=== PATIENT | male | born 1975 | race Caucasian/White ===

== ENCOUNTER 2018-06-18 09:26 | Inpatient (IN) ==
[2018-06-18] MEDS ORDERED: ZOFRAN IV ONE ×2 (09:42→10:59)
[2018-06-18] MEDS ORDERED: NS 1,000 ML IV ONE ×4 (09:42→14:21)
[2018-06-18 10:27] LABS: BASO# 0.02 X1000 (0.0-0.2); BASO% 0.1 % (0.0-0.8); EOS# 0.11 X1000 (0.0-0.7); EOS% 0.5 % (0.0-10.0); HEMATOCRIT 55.4 % (42.0-52.0); HEMOGLOBIN 19.4 g/dL (14.0-18.0); IMM GRAN# 0.09 X1000 (0.0-0.04); IMM GRAN% 0.4 % (0.0-0.5); LYMPH# 2.94 X1000 (1.2-3.4); LYMPH% 12.3 % (20.5-51.1); MCH 27.8 PG (27-31); MCV 79.3 FL (81-99); MONO# 0.78 X1000 (0.11-0.59); MONO% 3.3 % (1.7-9.3); MPV 10.4 FL (7.4-10.4); NEUT# 20.05 X1000 (1.4-6.5); NEUT% 83.4 % (42.2-75.2); PLT 352 X1000 (130-400); RBC 6.99 XMIL (4.7-6.1); RDW 14.5 % (11.5-14.5); WBC 23.99 X1000 (4.8-10.8)
[2018-06-18 10:37] LABS: INFLUENZA A NEGATIVE (NEGATIVE); INFLUENZA B NEGATIVE (NEGATIVE)
[2018-06-18 10:39] LABS: AGAP 16; ALBUMIN 3.8 g/dL (3.5-5.0); ALKALINE PHOSPHATASE 116 U/L (32-122); BUN 15 mg/dL (8-22); CALCIUM 8.7 mg/dL (8.8-10.2); CHLORIDE 100 mmol/L (98-107); COSMO 284; CREATININE 1.1 mg/dL (0.7-1.2); ESTIMATED GFR > 60; GLUCOSE 331 mg/dL (70-104); GOT 23 U/L (10-34); GPT 38 U/L (10-44); LIPASE 19 U/L (13-60); POTASSIUM 4.6 mmol/L (3.5-5.1); SODIUM 135 mmol/L (136-145); TCO2 19 mmol/L (25-35); TOTAL PROTEIN 7.3 g/dL (6.3-8.3)
[2018-06-18] MEDS ORDERED: MORPHINE IV ONE (10:59)
[2018-06-18 11:07] LABS: LYMPHS 14 % (21-51); MONO 2 % (1-9); SEGS 84 % (42-75)
--- NOTE | 2018-06-18 11:26 | Diag Imaging Result Doc PS360 ---
EXAM: CHEST-2 VIEWS 06/18/2018 HISTORY: cough with leukocystosis TECHNIQUE: PA and lateral chest COMMENT: The inspiration is slightly better than on 06/09/2014. Otherwise there has been no significant change in the appearance of the chest. The heart size and pulmonary vascularity are within normal limits. There are no pulmonary opacities. IMPRESSION: No acute disease. Electronically signed by Fer Packer 06/18/2018 11:24 AM
--- NOTE | 2018-06-18 11:35 | Diag Imaging Result Doc PS360 ---
EXAM: CT ABD/PELVIS W/IV CONT ONLY 06/18/2018 HISTORY: abd pain with vomiting and laukocystosis TECHNIQUE: This exam was performed using automated exposure control, adjustment of mA or kV according to patient size, and/or use of iterative reconstruction technique. COMMENT: The current examination is compared with the previous study of 02/17/2018. The visualized portion of the chest is unremarkable. The liver is hypodense suggesting fatty change. The spleen is not enlarged. The adrenal glands are within normal limits. The pancreas is unremarkable. There has been cholecystectomy. There is no evidence of bowel obstruction, abdominal aortic aneurysm or significant adenopathy. The stomach is not distended. The portions of the colon which contain gas demonstrated no mucosal thickening. The small bowel is not distended and the presence or absence of mucosal thickening cannot be established. The possibility of mild enteritis cannot be excluded. Pelvis: The appendix is normal in appearance. There is a small amount of free fluid in the pelvis. The urinary bladder is unremarkable. There is no evidence of significant adenopathy. The regional skeleton is intact. IMPRESSION: The possibility of enteritis cannot be excluded. Free fluid. Otherwise no definite evidence of acute disease. Electronically signed by Fer Packer 06/18/2018 11:32 AM
[2018-06-18] MEDS ORDERED: ZOSYN 3.375 GM in NS 50 ML IV ONE (11:52)
[2018-06-18] MEDS ORDERED: TORADOL IV ONE (11:55)
--- NOTE | 2018-06-18 12:01 | PROVIDER DOCUMENTATION ---
This chart was entered by Gillian Verma Scribe, acting as scribe for Donald Pandya CRNP. HPI-General Adult - General Chief Complaint: N/V/D Stated Complaint: ALLERGIC REACTION Time Seen by Provider: 06/18/18 09:50 Source: patient Allergies/Adverse Reactions: Patient Allergies Allergy/AdvReac Type Severity Reaction Status Date / Time No Known Allergies Allergy Verified 07/19/17 23:35 Home Medications: Home Medication List Medication Instructions Recorded Confirmed Last Taken Type Sitagliptin Phosphate [Januvia] 100 mg PO DAILY 02/23/15 08/15/15 08/15/15 07: 30 History Atenolol [Tenormin] 50 mg PO BID 08/15/15 08/15/15 08/15/15 08:30 History Ketorolac [Toradol] 10 mg PO Q6H PRN PRN #20 tablet 08/15/15 Unknown Rx Ondansetron HCl [Zofran] 4 mg PO Q4H PRN PRN #20 tablet 08/15/15 Unknown Rx Ciprofloxacin HCl [Cipro] 500 mg PO BID #20 tablet 04/15/16 Unknown Rx Hydrocodone/APAP 10 mg/325 mg 1 each PO Q6H PRN PRN #20 tablet 04/15/16 Unknown Rx [[place]-10] Ondansetron HCl [Zofran] 4 mg PO Q6HR PRN #20 tablet 04/15/16 Unknown Rx - History of Present Illness -Gen Adult Nature of Presenting Problems: 42 y/o male presents to ED with N/V/D and abdominal pain onset 2 hours ago. Pt states he thinks he is having an allergic reaction because his tongue is swelling, diaphoresis, and "welps" on abdomen onset just prior to arrival. Pt reports he took Benadryl before arrival in ED. Pt states he has not had anything new to eat or on his skin. Pt also states he has had cough and nasal drainage for 1 week. Pt is alert and oriented. Location of Pain/Injury: reports: abdomen Pain Radiation: reports: no radiation Quality of Pain: reports: aching Severity: reports: mild Onset/Duration: reports: 1-3 hours ago Timing: reports: still present Context/Activities at Onset: reports: none Modifying Factors: improves with: nothing Associated Symptoms: reports: cough, diaphoresis, diarrhea, sinus congestion/ drainage, nausea, vomiting, other (abdominal pain, tongue swelling, "welps" on abdomen) Similar Symptoms Previously?: No Recently seen or treated by another doctor?: No Review of Systems - Adult - REVIEW OF SYSTEMS - ADULT Constitutional: denies: chills, fever Eyes: reports: no symptoms reported Ears, Nose, Mouth & Throat: reports: sinus problem, other (tongue swelling) Cardiovascular: denies: chest pain, palpitations Respiratory: reports: cough. denies: shortness of breath Gastrointestinal: reports: abdominal pain, diarrhea, nausea, vomiting Genitourinary: reports: no symptoms reported Musculoskeletal: denies: back pain, joint pain Integumentary: reports: other (diaphoresis; "welps" on abdomen). denies: itching Neurological: denies: dizziness/vertigo, seizure Psychiatric: reports: no symptoms reported Endocrine: reports: no symptoms reported Hematologic/Lymphatic: reports: no symptoms reported Allergic/Immunologic: reports: no symptoms reported All Other Systems: Reviewed and Negative Past History - Adult - PAST MEDICAL HISTORY-ADULT Review of Records: reports: Old Records Reviewed, Nursing Assessment Review, Medications Reviewed Major Childhood Illnesses: reports: denies history Cardiovascular: reports: HTN Respiratory: reports: denies history Gastrointestinal: reports: denies history Obstetrical/Gynecological: reports: denies history Genitourinary: reports: denies history Musculoskeletal: reports: chronic pain, neck/back injury Neurological: reports: denies history Endocrine/Immune: reports: Diabetes Diabetes Type: Type 2 Other Conditions: reports: denies history - PRIOR SURGERIES/PROCEDURES Surgical/Procedure History: reports: cholecystectomy, other (spincterectomy/ fistula; abscess) - IMMUNIZATION STATUS Childhood Immunizations: See Nurse Assessment Flu Vaccine: See Nurse Assessment - FAMILY HISTORY Family History: reviewed, not pertinent - SOCIAL HISTORY Smoking: quit greater than 1 year Substance Use: none/never Alcohol Use Frequency: never Living Situation: family Physical Exam-General - PHYSICAL EXAM-ADULT Initial Vital Signs Reviewed: Yes - CONSTITUTIONAL General Appearance: appears well, alert, no apparent distress - EYES Eyes: PERRL/EOMI, pink conjunctivae - HEAD, EARS, NOSE, MOUTH & THROAT HENMT: normocephalic/atraumatic, moist mucous membranes, normal ENT inspection - NECK Neck: non-tender, full range of motion - RESPIRATORY Respiratory: chest non-tender, lungs clear, normal breath sounds - CARDIOVASCULAR Cardiovascular: normal peripheral pulses, regular rate, rhythm - GASTROINTESTINAL (ABDOMEN) Abdominal Exam: normal bowel sounds, non tender, soft - MUSCULOSKELETAL Back Exam: normal inspection, no CVA tenderness Extremity: normal range of motion, non-tender, normal gait - SKIN Integumentary: normal color, warm/dry, other (mild skin irritation over abdomen) - NEUROLOGIC Neurologic: grossly normal - PSYCHIATRIC Psych/Mental Status: normal mood/affect, normal thought content, normal thought process Progress - PLAN OF CARE/RESULTS Progress/Plan/Lab Results: Vital Signs - 8 hr 06/18/18 09:29 Pulse Rate 104 H Respiratory Rate 20 Blood Pressure 133/106 O2 Sat by Pulse Oximetry 97 Orders Category Date Time Status IV Insertion ORDERED Care 06/18/18 09:42 Active AMYLASE [CHEM] Stat Lab 06/18/18 09:42 Ordered CBC WITH DIFF [HEME] Stat Lab 06/18/18 09:42 Ordered COMPREHENSIVE METABOLIC PANEL [CHEM] Stat Lab 06/18/18 09:42 Uncollected INFLUENZA SCREEN A/B Stat Lab 06/18/18 09:42 Uncollected LIPASE [CHEM] Stat Lab 06/18/18 09:42 Uncollected UA NIMS W/REFLEX CULT PL [URINALYSIS] Stat Lab 06/18/18 09:42 Uncollected 0.9% Sodium Chloride Inj [Ns] 1,000 ml Med 06/18/18 09:42 Active IV 999 mls/hr Ondansetron [Zofran] Med 06/18/18 09:42 Discontinued 4 mg IV NOW ONE The pt will be admitted under Dr. Ramsey's Care. The pt and his family understands, verbalize, and agrees with the plan of care given today. Result Diagrams: 06/18/18 10:11 06/18/18 10:11 - XRAY 1 XRAY: Bilateral XRAY Study: Chest Impression: Normal (COMMENT: The inspiration is slightly better than on 2013. Otherwise there has been no significant change in the appearance of the chest. The heart size and pulmonary vascularity are within normal limits. There are no pulmonary opacities. IMPRESSION: No acute disease.) Comparison with other Films: changes noted - CT/MRI 1 CT Study: Abdomen, Pelvis Impression: Abnormal (COMMENT: The current examination is compared with the previous study of 02/17/2018. The visualized portion of the chest is unremarkable. The liver is hypodense suggesting fatty change. The spleen is not enlarged. The adrenal glands are within normal limits. The pancreas is unremarkable. There has been cholecystectomy. There is no evidence of bowel obstruction, abdominal aortic aneurysm or significant adenopathy. The stomach is not distended. The portions of the colon which contain gas demonstrated no mucosal thickening. The small bowel is not distended and the presence or absence of mucosal thickening cannot be established. The possibility of mild enteritis cannot be excluded. Pelvis: The appendix is normal in appearance. There is a small amount of free fluid in the pelvis. The urinary bladder is unremarkable. There is no evidence of significant adenopathy. The regional skeleton is intact. IMPRESSION: The possibility of enteritis cannot be excluded. Free fluid. Otherwise no definite evidence of acute disease.) Comparison with other Films: changes noted - CONSULTS/PCP/HOSPITALIST Notification #1 *Consult/PCP/Hospitalist*: [place] Time Discussed: 12:00 Consult Disposition: Admit Departure - Departure Date of Disposition Decision: 06/18/18 Time of Disposition Decision: 12:00 DIAGNOSIS: Enteritis, Dehydration Sepsis Qualifiers: Sepsis type: sepsis due to unspecified organism Qualified Code(s): A41.9 - Sepsis, unspecified organism Disposition: HOME 01 Certified Medical Emergency: Emergent Condition: Stable Referrals and Follow-Ups: None,PCP [Primary Care Provider] - - Critical Care Note This patient required my direct & personal management of CC.: No Attestation - Physician/ EDUARDO Attestation Patient care was provided by Advanced Practice Provider:: Yes Advanced Practice Provider:: Donald Pandya Advanced Practice Provider documentation review:: The Mid-level provider documentation, treatment plan and medical decision making was reviewed by the physician who agrees with all treatment and medical decision making by the P. The physician spent face to face time with patient:: No Advanced Practice Provider documentation review:: Supervising physician onsite and consulted in the evaluation and care of this patient. The physician did not have a face to face encounter with the patient. This chart was documented by the indicated scribe, (Gillian Verma Scribe) and accurately reflects the services I performed and decisions made by me, Donald Pandya CRNP, as attested by the provider's signature.
[2018-06-18 12:04] LABS: BILIRUBIN URINE NEGATIVE (NEGATIVE); BLOOD URINE NEGATIVE (NEGATIVE); CLARITY CLEAR (CLEAR); COLOR YELLOW; KETONE URINE NEGATIVE (NEGATIVE); LEUKOCYTES URINE TRACE (NEGATIVE); NITRITE URINE NEGATIVE (NEGATIVE); PH URINE 6.5; PROTEIN URINE 1+(30 mg/dL) mg/dL (NEGATIVE); UROBILINOGEN URINE NORMAL
[2018-06-18 12:12] LABS: URINE WBC <10 /HPF (<10)
[2018-06-18 12:13] LABS: URINE EPITHELIAL CELLS <10 /HPF (<10); URINE SOURCE CLEAN CATCH
--- NOTE | 2018-06-18 14:43 | HISTORY AND PHYSICAL ---
PRIMARY CARE PHYSICIAN: [facility]. CHIEF COMPLAINT: Nausea, vomiting, diarrhea with abdominal pain that began 2 hours prior to arrival. HISTORY OF PRESENTING ILLNESS: This is a 42-year-old male who presents to [facility] ER with complaints of nausea, vomiting, diarrhea, and abdominal pain that began approximately 2 hours prior to arrival. States that he ate buttery popcorn last night, and when he woke up this morning, he was burping the popcorn, and began vomiting, and then he began to feel his tongue swell, got diaphoretic, and noticed some welts on his abdomen, so he took a Benadryl at home before arriving to the emergency department. The tongue swelling had subsided, and the welts on his abdomen had subsided by the time he came to the emergency room. His workup did show a pulse of 104, a white blood cell count of 23.99, with a hemoglobin of 19.4, hematocrit 55.4. His plasma lactate was 2.5. Influenza A and B were both negative. Chest x-ray showed no acute disease. We did a CT of the abdomen and pelvis that showed the possibility of enteritis could not be excluded, so he is being admitted for further evaluation and treatment. PAST MEDICAL HISTORY: Hypertension and diabetes type 2. PAST SURGICAL HISTORY: Cholecystectomy and sphincterectomy/fistula abscess repair. FAMILY HISTORY: Reviewed and noncontributory. SOCIAL HISTORY: He currently lives with family. Denies any tobacco, alcohol, or illicit drug use. ALLERGIES: He has no known drug allergies. HOME MEDICATIONS: A current list of his home medications will need to be obtained and restarted as appropriate. Will place an order for nursing to update and confirm home medications. IMAGING AND LABORATORY DATA: Laboratory data showed a white blood cell count of 23.99, hemoglobin 19.4, hematocrit 55.4, platelets 352,000. Sodium of 135, potassium 4.6, chloride 100, CO2 of 19, BUN of 15, creatinine 1.1, glucose 331. Amylase 35, lipase 19. Plasma lactate of 2.5. Urinalysis was negative. Influenza A and B were both negative. Chest x-ray showed no acute disease. CT of the abdomen and pelvis showed the possibility of enteritis could not be excluded, free fluid, and otherwise no definite evidence of acute disease. REVIEW OF SYSTEMS: He denied any fever, chills, blurred vision, dizziness. He did have some swelling of his tongue that had subsided by the time he arrived to the emergency room. He denied any chest pain, coughing, shortness of breath. He was positive for abdominal pain that was generalized, nausea, vomiting, and diarrhea. Had some welts to his abdomen prior to arrival that had subsided after he took Benadryl, and denies any burning or hurting with urination. PHYSICAL EXAMINATION: VITAL SIGNS: His pulse was 104, respirations 20, blood pressure 133/106, saturating 97% on room air. GENERAL: This is a 42-year-old male who is sitting up in the bed and answers questions appropriately. HEENT: Normocephalic, atraumatic. Normal ENT inspection. Oropharynx and nares are clear. Eyes: Pupils are equal, round, and reactive to light and accommodation. Extraocular movements are intact. NECK: Normal inspection. Normal range of motion. LUNGS: Clear to auscultation bilaterally with equal lung expansion and chest wall movement. HEART: Regular rate and rhythm. No murmurs, rubs, or gallops. ABDOMEN: Soft, nontender, nondistended. Bowel sounds are present x4 quadrants. MUSCULOSKELETAL: He has 5/5 strength x4 extremities. NEUROLOGICAL: The cranial nerves II through XII appear grossly intact. ASSESSMENT: 1. Sepsis. 2. Enteritis. 3. Leukocytosis. 4. Dehydration. PLAN: He will be admitted to the medical unit. He, at this point, has received 2 boluses of normal saline, is getting the third bolus at this time, and will receive one more per our sepsis protocol. We will hold him n.p.o., except for some ice chips sparingly. We will do some stool studies of white blood cell count, Clostridium difficile toxin, and culture. He will be placed on Zosyn 3.375 grams IV every 6 hours, and then placed on normal saline at 75 mL an hour, and further orders after seen by attending, and we will recheck a CBC and BMP in the a.m. Dictated by JAI Adair for Carmelo Ramsey MD cc: JAI Adair MD
[2018-06-18] MEDS ORDERED: NS 1,000 ML IV SCH (16:56)
[2018-06-18] MEDS ORDERED: TYLENOL PO PRN (17:55)
[2018-06-18] MEDS ORDERED: ZOFRAN IV PRN (17:55)
[2018-06-18] MEDS: NS 1,000 ML IV SCH (18:41)
[2018-06-18] MEDS: ZOSYN 3.375 GM in NS 50 ML IV SCH (18:42)
[2018-06-18] MEDS: PLAVIX PO SCH (19:50)
[2018-06-18] MEDS: LIPITOR PO SCH (19:50)
--- NOTE | 2018-06-18 20:44 | HISTORY AND PHYSICAL ---
HISTORY AND PHYSICAL - ADDENDUM: He came in with nausea, vomiting, diarrhea. CT scan was negative. He did have a very high white count of 23, but he was extremely hemoconcentrated with an hemoglobin and hematocrit of 19 and 55, sugar 331. In any case, abdominal exam is benign. I think this is just a viral gastroenteritis. We are going to continue fluids and he has received several liters of fluids and seems better. He is hungry. He would like to eat. I do not really think he needs antibiotics. I think this is likely a viral process. We have ordered cultures. We will continue those once he is stable, hold his metformin until we know he is eating a bit better. We will continue sliding scale in the meantime and follow. Disposition pending his clinical status, but I am going to go ahead and advance his diet. If his numbers look better, discharge tomorrow. I leave it to the team tomorrow to decide about antibiotics, but I think if his stool studies are negative despite his leukocytosis, I think that is more likely hemoconcentration and leukemoid reaction than true disease, but I will leave it up to their humble opinion. cc: Carmelo Ramsey MD
[2018-06-19] MEDS: LIPITOR PO SCH (01:04)
[2018-06-19] MEDS: PLAVIX PO SCH (01:04)
[2018-06-19] MEDS: ZOSYN 3.375 GM in NS 50 ML IV SCH ×2 (01:08→06:18)
[2018-06-19] MEDS: NS 1,000 ML IV SCH (06:18)
[2018-06-19 06:49] LABS: HEMOGLOBIN A1C 6.8 % (4.8-6.0)
[2018-06-19 07:00] LABS: AGAP 8; ALBUMIN 3.1 g/dL (3.5-5.0); ALKALINE PHOSPHATASE 74 U/L (32-122); BUN 12 mg/dL (8-22); CALCIUM 7.8 mg/dL (8.8-10.2); CHLORIDE 108 mmol/L (98-107); COSMO 281; DIRECT BILIRUBIN < 0.20 mg/dL (0.00-0.20); ESTIMATED GFR > 60; GLUCOSE 135 mg/dL (70-104); GOT 15 U/L (10-34); GPT 31 U/L (10-44); POTASSIUM 4.1 mmol/L (3.5-5.1); SODIUM 140 mmol/L (136-145); TCO2 24 mmol/L (25-35); TOTAL PROTEIN 5.3 g/dL (6.3-8.3)
[2018-06-19 07:04] LABS: BASO% 0.3 % (0.0-0.8); EOS% 4.6 % (0.0-10.0); HEMATOCRIT 38.1 % (42.0-52.0); HEMOGLOBIN 12.9 g/dL (14.0-18.0); MCH 27.9 PG (27-31); MCHC 33.9 g/dL (33-37); MCV 82.3 FL (81-99); MONO% 6.5 % (1.7-9.3); MPV 10.2 FL (7.4-10.4); NEUT% 61.5 % (42.2-75.2); PLT 211 X1000 (130-400); RBC 4.63 XMIL (4.7-6.1); RDW 14.1 % (11.5-14.5); WBC 7.96 X1000 (4.8-10.8)
[2018-06-19 07:05] LABS: BASO# 0.02 X1000 (0.0-0.2); EOS# 0.37 X1000 (0.0-0.7); IMM GRAN# 0.01 X1000 (0.0-0.04); IMM GRAN% 0.1 % (0.0-0.5); LYMPH# 2.15 X1000 (1.2-3.4); MONO# 0.52 X1000 (0.11-0.59); NEUT# 4.89 X1000 (1.4-6.5)
[2018-06-19 07:33] VITALS: BP 123/79
[2018-06-19] MEDS ORDERED: GLUCOPHAGE PO SCH (08:00)
[2018-06-19] MEDS ORDERED: LEVAQUIN PO SCH (09:00)
[2018-06-19] MEDS ORDERED: ASPIRIN EC PO SCH (09:00)
--- NOTE | 2018-06-20 01:47 | DISCHARGE SUMMARY ---
ADMISSION DATE: 06/18/2018 DISCHARGE DATE: 06/19/2018 DIAGNOSES: 1. Sepsis resolved. 2. Enteritis. 3. Leukocytosis resolved. 4. Dehydration resolved. 5. Diabetes mellitus type 2. 6. Hypertension. DIAGNOSTICS: 1. CT of the abdomen and pelvis with IV contrast only revealed possibility of enteritis cannot be excluded, a small amount of free fluid in the pelvis. No evidence of significant adenopathy. Regional skeleton is intact. The visualized portion of the chest is unremarkable. Liver is hypodense suggesting fatty change. Spleen is not enlarged. Adrenal glands are within normal limits. Pancreas is unremarkable. There has been cholecystectomy. There is no evidence of bowel obstruction, abdominal aortic aneurysm or significant adenopathy. The stomach is not distended. Portions of the colon which contain gas demonstrate no mucosal thickening. Small bowel is not distended and the presence or absence of mucosal thickening cannot be established. The possibility of mild enteritis cannot be excluded . 2. Chest x-ray revealed no acute disease. Heart size and pulmonary vascularity are within normal limits. There are no pulmonary opacities. HOSPITAL COURSE: Mr. Merida presented to the emergency room with nausea, vomiting, diarrhea and abdominal pain that began 2 hours prior to presentation. CT read revealed possibility of enteritis cannot be excluded. He was given IV hydration as well as Zosyn every 6 hours. Today he has had no further abdominal pain nor nausea, vomiting, diarrhea and thankfully he is ready to be discharged home. Of note, a GI soft diet was ordered for the patient. He had been instructed that we would see how he tolerated. It was discussed with the patient that will order a GI soft diet see how he tolerated this and if he did tolerate it he would be discharged home. The patient refused to wait. Therefore he was discharged. DISCHARGE MEDICATIONS: Enteric-coated aspirin 81 mg daily, Lipitor 40 mg at bedtime, Plavix 75 mg at bedtime, metformin 500 mg b.i.d., the patient was instructed to hold this, Levaquin 500 mg p.o. daily for 5 days. The patient was instructed to hold metformin tomorrow. He can restart it on the as he did have IV contrast which he did voice understanding. DISCHARGE VITAL SIGNS: Blood pressure is 123/70 with a heart rate of 74, respirations 20, temperature 97.6 degrees oral with room air saturations 97-99%. FOLLOWUP: With his primary care provider in the next week, sooner if needed. He is to call to schedule an appointment. He is instructed to call to be seen sooner or return to the emergency room for recurring nausea, vomiting and diarrhea, any black or bloody vomitus or stools, temperature greater than 101, any chest pain, palpitations, syncope, dizziness, any shortness of breath, any hematuria, dysuria, frequency, urgency or for any questions or concerns he may have. He is being discharged home in stable condition with family members. TIME SPENT: Greater than 30 minutes. Dictated by JAI Gottlieb for Alexandre Gray MD This chart was documented by, JAI Gottlieb and accurately reflects the services performed, treatment plan and medical decisions as attested by the providers signature Alexandre Gray MD. cc: JAI Gottlieb MD
== END 2018-06-19 09:40 | disposition home or self-care (01) | DRG 872 ==
LOC: P.ED 09:26 → P.MEDSURG 09:27 → SUATTDRO 09:27 → P.MEDSURG 15:35
PROVIDERS: ATTEND Family Medicine
CPT/HCPCS: 71020; 71046; 74177; 80048; 80053; 80076; 81001; 82150; 82948; 83036; 83605; 83690; 85025; 87040; 87045; 87046; 87205; 87275; 87276; 87324; 87804; 89055; 96361; 96365; 96375; 96376; 99285; A9270; J1885; J2270; J2405; J2543; J7030; Q9967; XXXXX